=== PATIENT | female | born 1950 | race Caucasian/White ===

== ENCOUNTER 2021-01-06 18:16 | Emergency (ER) | payer MEDICARE ==
[2021-01-06] MEDS ORDERED: SODIUM CHLORIDE 0.9% 1,000 ML IV STA (18:31)
[2021-01-06] MEDS ORDERED: VENLAFAXINE ER 75 MG CAPSULE PO STA (18:43)
[2021-01-06] MEDS ORDERED: ONDANSETRON 4 MG/2 ML VIAL IVP STA (18:43)
--- NOTE | 2021-01-06 18:44 | ED Physician Documentation ---
PD HPI ABD PAIN - Stated complaint Stated Complaint: SHAKE/VOMIT - Chief complaint Chief Complaint: Abd Pain - History obtained from History obtained from: Patient - Additional information Additional information: 70-year-old woman had too much to drink last night and was vomiting all night. Now feels dehydrated and is still slightly nauseous. She was not able to keep her Effexor down and now she feels like she is shaky and withdrawing from that. No abdominal pain. No hematemesis. No dark or tarry stools. Review of Systems Constitutional: reports: Chills, Fatigue, Sweats Cardiac: denies: Chest pain / pressure, Palpitations Respiratory: denies: Dyspnea, Cough GI: denies: Abdominal Pain PD PAST MEDICAL HISTORY - Past Surgical History /[employer] AND [employer]MENT [employer]: Other - Present Medications Home Medications: Ambulatory Orders Medication Instructions Recorded Confirmed Venlafaxine ER [Effexor ER] 150 mg PO DAILY 04/12/16 01/06/21 - Allergies Allergies/Adverse Reactions: Allergies Allergy/AdvReac Type Severity Reaction Status Date / Time Penicillins Allergy Unknown Verified 01/06/21 18:25 - Social History Does the pt smoke?: No Smoking Status: Never smoker Does the pt drink ETOH?: No Does the pt have substance abuse?: No - Immunizations Immunizations: TDAP >10years/unknown - POLST Patient has POLST: No PD ED PE NORMAL - Vitals Vital signs reviewed: Yes - General General: Alert and oriented X 3, Other (She appears shaky and anxious) - Cardiac Cardiac: RRR, No murmur - Respiratory Respiratory: No respiratory distress, Clear bilaterally - Abdomen Abdomen: Normal bowel sounds, Soft, Non tender - Neuro Neuro: Alert and oriented X 3, Normal speech - Psych Psych: Normal mood, Normal affect Results - Vitals Vitals: Vital Signs - 24 hr 01/06/21 01/06/21 01/06/21 18:25 18:45 19:45 Temperature 36.5 C 36.3 C L Heart Rate 118 H 101 H 85 Respiratory 16 18 16 Rate Blood Pressure 201/86 H 187/77 H O2 Saturation 98 97 98 Oxygen O2 Source Room air - Labs Labs: Laboratory Tests 01/06/21 18:37 Sodium 139 Potassium 3.8 Chloride 101 Carbon Dioxide 23 Anion Gap 15.0 H BUN 12 Creatinine 0.8 Estimated GFR (MDRD) 71 L Glucose 128 H Calcium 10.4 H Magnesium 2.1 Total Bilirubin 0.9 AST 21 ALT 21 Alkaline Phosphatase 80 Total Protein 7.9 Albumin 4.6 Globulin 3.3 Albumin/Globulin Ratio 1.4 Lipase 23 PD MEDICAL DECISION MAKING - ED course ED course: 70-year-old woman was drinking heavily last night and then started vomiting. Then she was unable to keep down her SNRI. Now feeling shaky still nauseous and weak. After the administration of IV fluids, some Zofran, and her usual dose of Effexor she felt basically asymptomatic. Departure - Departure Disposition: 01 Home, Self Care Clinical Impression: Dehydration Condition: Good Record reviewed to determine appropriate education?: Yes Instructions: ED Dehydration Comments: Followup with your PMD within the week, return if worse. Discharge Date/Time: 01/06/21 19:53
[2021-01-06 18:54] LABS: ALBUMIN 4.6 g/dL (3.2-5.5); ALBUMIN/GLOBULIN RATIO 1.4 (1.0-2.2); BILIRUBIN,TOTAL 0.9 mg/dL (0.2-1.0); CALCIUM 10.4 mg/dL (8.5-10.3); CREATININE 0.8 mg/dL (0.4-1.0); MAGNESIUM 2.1 mg/dL (1.7-2.8); POTASSIUM 3.8 mmol/L (3.5-5.0); TOTAL PROTEIN 7.9 g/dL (6.7-8.2)
[2021-01-06 19:49] VITALS: BP 187/77
== END 2021-01-06 19:53 | disposition home or self-care (01) ==
LOC: ED 18:16
DX: E86.0 Dehydration (principal); R11.2 Nausea with vomiting, unspecified
CPT/HCPCS: 36415; 80053; 83690; 83735; 96374; 99283; A9270

== ENCOUNTER 2021-11-10 13:00 | Emergency (ER) | payer MEDICARE ==
[2021-11-10 14:55] VITALS: BP 183/73
[2021-11-10] MEDS ORDERED: lisinopriL 5 MG TABLET PO STA (15:20)
--- NOTE | 2021-11-10 15:21 | ED Physician Documentation ---
History of Present Illness - Stated complaint Stated Complaint: BP HIGH - Chief complaint Chief Complaint: General - History obtained from History obtained from: Patient - History of Present Illness Timing: Chronic Pain level max: 0 Pain level now: 0 - Additonal information Additional information: Patient is a 71-year-old female who presents to the emergency department complaining of elevated blood pressure at home today. She states that she randomly checks her blood pressure once in a while and it is normally 160 or so. Today it was 170. Her friend who is a chiropractor brought her into the emergency department. No headache. No focal neurological deficits, no vision changes, no chest pain. No shortness of breath. No abdominal pain. Patient had recent lab work that she states was reportedly normal. Patient is currently asymptomatic. 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[employer]OR: Breast cancer : None HEENT: None Psych: Depression, Anxiety Musculoskeletal: Osteoarthritis Derm: None - Past Surgical History 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 Medications Home Medications: Ambulatory Orders Medication Instructions Recorded Confirmed Venlafaxine ER [Effexor ER] 150 mg PO DAILY 04/12/16 11/10/21 lisinopriL [Lisinopril] 10 mg PO DAILY #30 tablet 11/10/21 - Allergies Allergies/Adverse Reactions: Allergies Allergy/AdvReac Type Severity Reaction Status Date / Time Penicillins Allergy Unknown Verified 11/10/21 13:22 - Social History Does the pt smoke?: No Smoking Status: Never smoker Does the pt drink ETOH?: Yes Does the pt have substance abuse?: Yes Substance Use and Type: Marijuana - Immunizations Immunizations are current?: Yes Immunizations: TDAP >10years/unknown - POLST Patient has POLST: No PD ED PE NORMAL - Vitals Vital signs reviewed: Yes - General General: Alert and oriented X 3, No acute distress, Well developed/nourished - HEENT HEENT: PERRL, Moist mucous membranes - Neck Neck: Supple, no meningeal sign - Cardiac Cardiac: RRR, Strong equal pulses - Respiratory Respiratory: No respiratory distress, Clear bilaterally - Abdomen Abdomen: Soft, Non tender, Non distended - Derm Derm: Warm and dry - Extremities Extremities: No edema - Neuro Neuro: Alert and oriented X 3 - Psych Psych: Normal mood, Normal affect Results - Vitals Vitals: Vital Signs - 24 hr 11/10/21 11/10/21 13:19 14:54 Temperature 36.2 C L Heart Rate 73 78 Respiratory 12 16 Rate Blood Pressure 199/76 H 183/73 H O2 Saturation 100 100 Oxygen O2 Source Room air PD MEDICAL DECISION MAKING - ED course Complexity details: reviewed old records, considered differential, d/w patient ED course: Patient is fully asymptomatic here. She refuses any current blood work as she states she just had this done. I offered to start her on a low-dose of lisinopril. Patient initially declined this, but then she states that she would like to be started on this and will follow up with her doctor for further care. Looking back through her records her blood pressure systolic has been over 200 several times in the emergency department. Patient counseled regarding signs and symptoms for which I believe and urgent re-evaluation would be necessary. Patient with good understanding of and agreement to plan and is comfortable going home at this time This document was made in part using voice recognition software. While efforts are made to proofread this document, sound alike and grammatical errors may occur. Departure - Departure Disposition: 01 Home, Self Care Clinical Impression: Hypertension Qualifiers: Hypertension type: unspecified Qualified Code(s): I10 - Essential (primary) hypertension Condition: Good Instructions: ED HTN Established Follow-Up: your,doctor in 1 week [Other] Prescriptions: lisinopriL [Lisinopril] 10 mg PO DAILY #30 tablet Comments: We will start you on lisinopril today. Please follow-up with your doctor for further care. Please make sure to take your blood pressure 1-2 times per day and keep a log of this so that your doctor can adjust your blood pressure medication. Return if you develop any symptoms such as headache, weakness, visual changes, chest pain or shortness of breath. Your prescriptions were sent to [email or web address] in [place]. Discharge Date/Time: 11/10/21 15:26
== END 2021-11-10 15:26 | disposition home or self-care (01) ==
LOC: ED 13:00
DX: R03.0 Elevated blood-pressure reading, without diagnosis of hypertension (principal)
CPT/HCPCS: 99282; 99283; A9270